=== PATIENT | male | born 1955 | race Caucasian/White ===

== ENCOUNTER 2017-07-13 17:12 | Emergency (ER) | payer MEDICARE ==
--- NOTE | 2017-07-13 17:29 | ED ---
General Adult HPI - General Chief complaint: Extremity Injury, Lower Stated complaint: Fall, hip pain Time Seen by Provider: 07/13/17 17:20 Source: patient, RN notes reviewed Mode of arrival: ambulatory Limitations: no limitations - History of Present Illness Initial comments: 62 yo male presents to the ER with cc of left hip pain. Patient had his hip fixed on June 25 after a fall and fracture. He had pins placed to [facility]. He is here because he fell last night he continues to have left hip pain. They state he has been able to ambulate but they're concerned due to the fall so without that they should be seen. They state that the patient has had no other issues. Patient denies any recent fever, chills, shortness of breath, chest pain, back pain, abdominal pain, nausea vomiting, numbness or tingling, dysuria or hematuria, constipation or diarrhea, headaches or visual changes, or any other current symptoms. - Related Data Home Medications Medication Instructions Recorded Confirmed Citalopram Hydrobromide [CeleXA] 1 tab PO DAILY 09/12/13 09/12/13 Diclofenac Sodium [Diclofenac 1 tab PO DAILY 09/12/13 09/12/13 Sodium] Hydroxychloroquine Sulfate 1 tab PO DAILY 09/12/13 09/12/13 [Plaquenil] Ibuprofen [Motrin] 1 tab PO DAILY 09/12/13 09/12/13 Losartan Potassium [Cozaar] 1 tab PO DAILY 09/12/13 09/12/13 buPROPion [Wellbutrin] 1 tab PO BID 09/12/13 09/12/13 traMADol HCl [Ultram] 1 tab PO Q6HR PRN 09/12/13 09/12/13 Allergies Allergy/AdvReac Type Severity Reaction Status Date / Time Sulfa (Sulfonamide Allergy Rash/Hives Verified 07/13/17 18:06 Antibiotics) Review of Systems ROS Statement: Those systems with pertinent positive or pertinent negative responses have been documented in the HPI. ROS Other: All systems not noted in ROS Statement are negative. Past Medical History Past Medical History: Hypertension, Rheumatoid Arthritis (RA) History of Any Multi-Drug Resistant Organisms: None Reported Past Surgical History: Orthopedic Surgery, Tonsillectomy Additional Past Surgical History / Comment(s): COLONSCOPY, EGD, HAD LT ROTATOR CUFF REPAIR APPROX. 6 WEEKS AGO Past Anesthesia/Blood Transfusion Reactions: No Reported Reaction Past Psychological History: No Psychological Hx Reported Smoking Status: Current every day smoker Past Alcohol Use History: None Reported Past Drug Use History: None Reported General Exam - General Exam Comments Initial Comments: General: The patient is awake and alert, in no distress, and does not appear acutely ill. Neck: The neck is supple, there is no tenderness. Cardiovascular: There is a regular rate and rhythm. No murmur, rub or gallop is appreciated. Respiratory: Lungs are clear to auscultation, respirations are non-labored, breath sounds are equal. No wheezes, stridor, rales, or rhonchi. Musculoskeletal: Sensation intact with 2+ pulses. Left lower extremity. Full range of motion of the left hip left knee and left ankle. Some tenderness along the lateral aspect of the left hip. No deformity. Patient is able to ambulate. Neurological: CN II-XII intact, There are no obvious motor or sensory deficits. Coordination appears grossly intact. Speech is normal. Skin: Skin is warm and dry and no rashes or lesions are noted. Psychiatric: Normal mood and affect. Limitations: no limitations Course Vital Signs 07/13/17 17:16 Temperature 96.9 F L Pulse Rate 104 H Respiratory 18 Rate Blood Pressure 132/73 O2 Sat by Pulse 99 Oximetry Medical Decision Making - Medical Decision Making 62-year-old male presents for left hip pain. At this time patient's x-rays reviewed and negative. At this time we discussed continued follow-up. We discussed return parameters all questions. Patient family stated the Brandyn management this plan. All questions have been answered. They will be discharged. - Radiology Data Radiology results: report reviewed, image reviewed Disposition Clinical Impression: Left hip pain, Fall Disposition: HOME SELF-CARE Condition: Stable Instructions: Hip Pain (ED) Additional Instructions: Please use medication as discussed. Please follow up with family doctor if symptoms have not improved over the next two days. Please return to the emergency room if your symptoms increase or worsen or for any other concerns. Referrals: Sangeeta Mercado MD [STAFF PHYSICIAN] - 1-2 days Time of Disposition: 18:07
--- NOTE | 2017-07-13 17:57 | XR ---
EXAMINATION TYPE: XR Hip LT and AP Pelvis DATE OF EXAM: 07/13/2017 COMPARISON: NONE HISTORY: Hip pain TECHNIQUE: 3 views FINDINGS: There are screws fixating an old subcapital fracture of the left femur. Pelvic ring appears intact. I see no definite acute fracture. Sacroiliac joints appear intact. Proximal right femur is intact. CONCLUSION: Previous left hip surgery. Osteoarthritic mild narrowing of the left hip joint space. No definite acu te fracture seen. Comparison with an old exam would be helpful.
[2017-07-13 18:27] VITALS: BP 153/92; PULSE 97; RESP 19; TEMP 97.3
== END 2017-07-13 18:28 | disposition home or self-care (01) ==
LOC: EC 17:12
DX: M25.552 Pain in left hip (principal); I10 Essential (primary) hypertension; F17.200 Nicotine dependence, unspecified, uncomplicated; Z79.1 Long term (current) use of non-steroidal anti-inflammatories (NSAID); Z79.899 Other long term (current) drug therapy; Z88.2 Allergy status to sulfonamides; W19.XXXA Unspecified fall, initial encounter
CPT/HCPCS: 73502; 99283

== ENCOUNTER 2023-03-12 11:19 | Emergency (ER) | payer MEDICARE ==
[2023-03-12 11:47] VITALS: RESP 18
[2023-03-12] MEDS ORDERED: DIPH,PERTUS(ACELL)TETVAC-LF 0.5 ML VIAL IM ONE (11:52)
[2023-03-12] MEDS ORDERED: LIDOCAINE 1% INJ 10MG/ML (20 ML MDV) SQ ONE (11:52)
--- NOTE | 2023-03-12 12:04 | ED ---
General Adult HPI - General Chief complaint: Head Injury Stated complaint: fall/face laceration Time Seen by Provider: 03/12/23 11:31 Source: patient, RN notes reviewed Mode of arrival: ambulatory Limitations: no limitations - History of Present Illness Initial comments: 67-year-old male with past medical history of CVA presents to the emergency department for chief complaint of head injury. He states that this morning he was attempting to get out of bed when he rolled and fell hitting his head on the concrete. He states that he did not lose consciousness. He is not on blood thinners. She does admit to headache at this time. Denies nausea, vomiting. He does have residual right-sided facial droop and dysphasia from a prior CVA. Officer from the custodial with him states that he is at his baseline. - Related Data Home Medications Medication Instructions Recorded Confirmed Amitriptyline HCl [Elavil] 25 mg PO HS 07/13/17 07/13/17 Atorvastatin [Lipitor] 10 mg PO HS 07/13/17 07/13/17 Enoxaparin [Lovenox] 40 mg SQ DAILY 07/13/17 07/13/17 Gabapentin [Neurontin] 100 mg PO BID 07/13/17 07/13/17 HYDROcodone/APAP 10-325MG [[place] 1 tab PO Q6H PRN 07/13/17 07/13/17 10-325] Losartan Potassium 100 mg PO DAILY 07/13/17 07/13/17 Nicotine 21Mg/24Hr Patch [Habitrol 1 each TRANSDERM DAILY 07/13/17 07/13/17 21Mg/24Hr Patch] amLODIPine [Norvasc] 10 mg PO DAILY 07/13/17 07/13/17 buPROPion HCL [Wellbutrin XL] 300 mg PO DAILY 07/13/17 07/13/17 methocarbamoL [Robaxin] 750 mg PO TID 07/13/17 07/13/17 predniSONE 10 mg PO QAM 07/13/17 07/13/17 Allergies Allergy/AdvReac Type Severity Reaction Status Date / Time Sulfa (Sulfonamide Allergy Rash/Hives Verified 03/12/23 11:26 Antibiotics) Review of Systems ROS Statement: Those systems with pertinent positive or pertinent negative responses have been documented in the HPI. ROS Other: All systems not noted in ROS Statement are negative. Past Medical History Past Medical History: CVA/TIA, Hyperlipidemia, Hypertension, Rheumatoid Arthritis (RA) History of Any Multi-Drug Resistant Organisms: None Reported Past Surgical History: Orthopedic Surgery, Tonsillectomy Additional Past Surgical History / Comment(s): COLONSCOPY, EGD, HAD LT ROTATOR CUFF REPAIR APPROX. 6 WEEKS AGO Past Anesthesia/Blood Transfusion Reactions: No Reported Reaction Past Psychological History: No Psychological Hx Reported Past Alcohol Use History: None Reported Past Drug Use History: None Reported General Exam Limitations: no limitations General appearance: alert, in no apparent distress Head exam: Present: other (Laceration and hematoma above left eye) Eye exam: Present: normal appearance, PERRL, EOMI. Absent: scleral icterus, conjunctival injection, periorbital swelling ENT exam: Present: normal exam, mucous membranes moist Neck exam: Present: normal inspection, full ROM. Absent: tenderness, meningismus, lymphadenopathy Respiratory exam: Present: normal lung sounds bilaterally. Absent: respiratory distress, wheezes, rales, rhonchi, stridor Cardiovascular Exam: Present: regular rate, normal rhythm, normal heart sounds. Absent: systolic murmur, diastolic murmur, rubs, gallop, clicks Extremities exam: Present: normal inspection, full ROM, normal capillary refill. Absent: tenderness, pedal edema, joint swelling, calf tenderness Back exam: Present: normal inspection, full ROM. Absent: tenderness Neurological exam: Present: alert, oriented X3, other (Right-sided facial droop, 5 over 5 strength in upper and lower extremities) Psychiatric exam: Present: normal affect, normal mood Skin exam: Present: warm, dry, other (Hematoma and laceration above left eyebrow). Absent: intact Course Vital Signs 03/12/23 03/12/23 03/12/23 11:26 13:01 13:32 Temperature 98 F 98.7 F Pulse Rate 62 67 71 Respiratory 18 18 18 Rate Blood Pressure 180/92 160/90 171/91 O2 Sat by Pulse 99 98 95 Oximetry Procedures - Laceration Laceration #1 Consent Obtained: verbal consent Indication: laceration Site: face Size (cm): 2 Description: linear Depth: simple, single layer Anesthetic Used: lidocaine 1% Anesthesia Technique: local infiltration Pre-repair: wound explored Type of Sutures: other Size of Sutures: 6-0 Number of Sutures: 2 Medical Decision Making - Medical Decision Making Was pt. sent in by a medical professional or institution ([facility], HOT PATCHER, urgent care, hospital, or prison...) When possible be specific @ -No Did you speak to anyone other than the patient for history (EMS, parent, family, police, friend...)? What history was obtained from this source @ -officer accompanying patient Did you review nursing and triage notes (agree or disagree)? Why? @ -I reviewed and agree with nursing and triage notes Were old charts reviewed (outside hosp., previous admission, EMS record, old EKG, old radiological studies, urgent care reports/EKG's, prison records)? Report findings @ -No old charts were reviewed Differential Diagnosis (chest pain, altered mental status, abdominal pain women, abdominal pain men, vaginal bleeding, weakness, fever, dyspnea, syncope, headache, dizziness, GI bleed, back pain, seizure, CVA, palpatations, mental health, musculoskeletal)? @ -laceration, abrasion, head injury, intracranial hemorrhage, this list is not all-inclusive EKG interpreted by me (3pts min.). @ -None X-rays interpreted by me (1pt min.). @ -None done CT interpreted by me (1pt min.). @ -CT brain and C-spine shows no evidence of acute intracranial hemorrhage or cspine fracture U/S interpreted by me (1pt. min.). @ -None done What testing was considered but not performed or refused? (CT, X-rays, U/S, labs)? Why? @ -None What meds were considered but not given or refused? Why? @ -None Did you discuss the management of the patient with other professionals (professionals i.e. [facility], HOT PATCHER, lab, RT, psych nurse, social insurance analyst, fuel manager, teacher, chief clinical officer, correctional counselor/case manager)? Give summary @ -No Was smoking cessation discussed for >3mins.? @ -No Was critical care preformed (if so, how long)? @ -No Were there social determinants of health that impacted care today? How? (Homelessness, low income, unemployed, alcoholism, drug addiction, transportation, low edu. Level, literacy, decrease access to med. care, custodial, rehab)? @ -No Was there de-escalation of care discussed even if they declined (Discuss DNR or withdrawal of care, Hospice)? DNR status @ -No What co-morbidities impacted this encounter? (DM, HTN, Smoking, COPD, CAD, Cancer, CVA, ARF, Chemo, Hep., AIDS, mental health diagnosis, sleep apnea, morbid obesity)? @ -None Was patient admitted / discharged? Hospital course, mention meds given and route, prescriptions, significant lab abnormalities, going to OR and other pertinent info. @ -Discharged. Patient presented to emergency department chief complaint of head injury from falling out of his bunk this morning and he has had on the ground. Patient does have a history of CVA and has some residual right-sided facial droop and dysphasia which is at the patient's baseline according to the officer who brought him in today. Patient has a laceration above his left eyebrow which was obtained and repaired. CT brain and C-spine shows no evidence of acute intracranial abnormality, mild atrophy and chronic vascular ischemic white matter changes; no acute cervical spine fracture, moderate multilevel cervical spondylosis, moderate biapical pulmonary emphysema. Patient and officer advised on findings and wound care. Patient stable to be discharged back to the custodial. Case discussed with Dr. Cosby. Undiagnosed new problem with uncertain prognosis? @ -No Drug Therapy requiring intensive monitoring for toxicity (Heparin, Nitro, Insulin, Cardizem)? @ -No Were any procedures done? @ -No Diagnosis/symptom? @ -head injury, laceration Acute, or Chronic, or Acute on Chronic? @ -acute Uncomplicated (without systemic symptoms) or Complicated (systemic symptoms)? @ -uncomplicated Side effects of treatment? @ -No Exacerbation, Progression, or Severe Exacerbation? @ -No Poses a threat to life or bodily function? How? (Chest pain, [place], [place], pneumonia, PE, COPD, DKA, ARF, appy, cholecystitis, CVA, Diverticulitis, Homicidal, Suicidal, threat to staff... and all critical care pts) @ -No Disposition Clinical Impression: Fall, Head injury, Laceration Disposition: HOME SELF-CARE Condition: Stable Instructions (If sedation given, give patient instructions): Care For Your Stitches (ED) Additional Instructions: Please have sutures removed in around 5 days. Utilize Tylenol and Motrin as needed for pain. Keep wound clean and dry. Return to the emergency department for new or worsening symptoms. Is patient prescribed a controlled substance at d/c from ED?: No Referrals: None,Stated [Primary Care Provider] - 1-2 days
--- NOTE | 2023-03-12 13:21 | CT ---
EXAMINATION TYPE: CT brain cspine wo con CT DLP: 1346.3 mGycm, Automated exposure control for dose reduction was used. DATE OF EXAM: 03/12/2023 12:18 PM COMPARISON: None. CLINICAL INDICATION:Male, 67 years old with history of fall; fall off top bunk bed, laceration above left eye TECHNIQUE: Brain: Multiple axial CT images of the brain were obtained without IV contrast. Cspine: Axial CT images from the skull base to the inferior aspect of T2 we obtained without intraven ous contrast. Coronal and sagittal reformatted images were also reviewed. FINDINGS: Brain: Extra-axial spaces: No abnormal extra-axial fluid collections. Ventricular system: Dilatation in proportion to cerebral atrophy. Cerebral parenchyma: No acute intraparenchymal hemorrhage or mass effect. The de oliveira-white junction is well differentiated. There is moderate generalized brain atrophy. Patchy hypoattenuation throughout the bilateral cerebral white matter, moderate in degree, most often seen with chronic microvascular i schemic changes in this age group. Small lacunar infarcts are seen in the bilateral basal ganglia, li harvey chronic. Cerebellum: Unremarkable. Mass effect: No evidence of midline shift. Intracranial vasculature: Atherosclerotic calcifications of the larger arteries noted near the skull base. Soft tissues: Mild soft tissue swelling suggested anterior and superior to the left eye. Calvarium/osseous structures: No acute abnormality. Paranasal sinuses and mastoid air cells: Clear. Visualized orbits: Orbital contents are intact. Cervical spine: Fracture: None. Osseous structures, spinal canal/neural foramina: Moderate multilevel degenerative disc disease and f acet arthrosis. Near complete fusion of the bilateral facets at C3-C4. Mild/moderate neural foraminal stenoses at mul tiple levels, greatest bilaterally at C6-C7. Mild multilevel spinal canal stenoses. Vertebral alignment: Within normal limits. Neck soft tissues: Prevertebral soft tissues are within normal limits. Calcifications of the bilatera l cervical carotid arteries greatest at the bifurcations. Other: The visualized airway appears patent. Mild globular filling defect along the right tracheal wa ll at the level of the thoracic in depth could be due to mucous secretions or aspiration. Moderate em physematous changes in the lung apices. IMPRESSION: No CT evidence of an acute intracranial abnormality. Moderate atrophy and chronic microvascular ischemic white matter changes. No evidence of acute cervical spine fracture. Moderate multilevel cervical spondylosis. Moderate biapical pulmonary emphysema.
[2023-03-12 13:54] VITALS: BP 171/91; PULSE 71; TEMP 98.7
== END 2023-03-12 13:32 | disposition home or self-care (01) ==
LOC: EC 11:19
DX: S01.112A Laceration without foreign body of left eyelid and periocular area, initial encounter (principal); I67.82 Cerebral ischemia; M47.812 Spondylosis without myelopathy or radiculopathy, cervical region; J43.9 Emphysema, unspecified; E78.5 Hyperlipidemia, unspecified; I10 Essential (primary) hypertension; Z79.899 Other long term (current) drug therapy; Z88.2 Allergy status to sulfonamides; Z86.73 Personal history of transient ischemic attack (TIA), and cerebral infarction without residual deficits; Z23 Encounter for immunization; W18.09XA Striking against other object with subsequent fall, initial encounter
CPT/HCPCS: 72125; 70450; 90715; 99284; 90471; 12011; J2001